=== PATIENT | male | born 1980 | race Caucasian/White ===

== ENCOUNTER 2023-05-12 23:52 | Emergency (ER) | payer OTHER ==
[~2023-05-12] VITALS: Ht 175.3 cm; Wt 135.2 kg
[2023-05-12 23:54] VITALS: BP 151/96; RESP 16; TEMP 96.2; O2SAT 100
[2023-05-13 00:16] VITALS: O2SAT 97
[2023-05-13 02:41] VITALS: BP 110/68; PULSE 92; RESP 17; O2SAT 97
== END 2023-05-13 02:31 | disposition home or self-care (01) ==
LOC: MED 23:52
DX: S01.81XA Laceration without foreign body of other part of head, initial encounter (principal); W18.30XA Fall on same level, unspecified, initial encounter; Y93.89 Activity, other specified; Y92.89 Other specified places as the place of occurrence of the external cause; Y99.8 Other external cause status
CPT/HCPCS: 12014; 99282